=== PATIENT | female | born 1960 | race African-American/Black ===

== ENCOUNTER → 2017-02-22 | Outpatient (CLI) | payer MEDICARE, MEDICAID ==
[~2017-02-22] MED LIST: ASPI325T PO; CITA-51 PO; HYDR-2164 PO; LABE100T19 PO; MELO7.5T12 PO
--- NOTE | 2017-02-22 12:53 | DI ---
Indication: ITS.REASON: M25.551 RIGHT HIP PAIN PROCEDURE: HIP BILATERAL 2 VIEW: Encounter: Initial Comparison: None Findings: Left hip: No acute fracture or dislocation. Mild joint space narrowing. No significant osteophyte formation. Right hip: No acute fracture or dislocation. Mild joint space narrowing. No significant osteophytes seen. Degenerative change in the right SI joint. Impression: Left hip: Mild osteoarthritis. Right hip: Mild osteoarthritis. .
--- NOTE | 2017-02-22 12:53 | DI ---
Indication: ITS.REASON: M25.561 RIGHT KNEE PAIN PROCEDURE: KNEE RIGHT 3 VIEWS: Encounter: Initial Comparison: None Findings: There is no acute fracture, dislocation or malalignment identified. Mild lateral compartment joint space loss. No joint effusion. Impression: Mild lateral compartment degenerative change. .
--- NOTE | 2017-02-22 12:55 | DI ---
Indication: ITS.REASON: M54.5 LOW BACK PAIN PROCEDURE: LUMBAR SPINE COMP W/O BEND: Encounter: Initial Comparison: MRI lumbar spine dated November 13, 2012 Findings: Interval development of a mild superior endplate compression deformity of L3. This is of uncertain age. The remaining lumbar vertebral body heights are maintained. Mild disk space narrowing at L4-L5. Degenerative facet disease at L4-S1. The oblique views show no definite pars defects. Impression: Age-indeterminate superior endplate compression fracture of L3. .
== END ==
LOC: IMA 11:52
PROVIDERS: ATTEND Internal Medicine
DX: M48.56XA Collapsed vertebra, not elsewhere classified, lumbar region, initial encounter for fracture (principal); M16.0 Bilateral primary osteoarthritis of hip; M25.861 Other specified joint disorders, right knee; M47.817 Spondylosis without myelopathy or radiculopathy, lumbosacral region; M25.551 Pain in right hip; M25.561 Pain in right knee; M54.5 Low back pain

== ENCOUNTER → 2017-02-22 | Outpatient (CLI) | payer MEDICARE, MEDICAID ==
[2017-02-22 12:20] LABS: BASOPHILS % (AUTO) 0.2 % (0-2); EOSINOPHILS # (AUTO) 0.1 T/MM3 (0-0.5); EOSINOPHILS % (AUTO) 1.4 % (0-4); HCT - HEMATOCRIT 42.7 % (36-46); HGB - HEMOGLOBIN 14.5 GM/DL (12-16); IMMATURE GRANULOCYTE # (AUTO) 0.01 T/MM3 (0.00-0.03); IMMATURE GRANULOCYTE % (AUTO) 0.2 % (0.0-0.5); LYMPHOCYTES # (AUTO) 1.9 T/MM3 (1-4.8); LYMPHOCYTES % (AUTO) 29.1 % (23-45); MEAN CORPUSCULAR HGB 32.2 UUG (26-34); MEAN CORPUSCULAR VOLUME 94.7 UM3 (80-100); MEAN PLATELET VOLUME 10.8 UM3 (9.4-12.4); MONOCYTES # (AUTO) 0.6 T/MM3 (0-0.8); MONOCYTES % (AUTO) 8.6 % (0-9.0); NEUTROPHILS #(AUTO)-ABSOLUTE 3.9 T/MM3 (1.8-7.7); NEUTROPHILS % (AUTO) 60.5 % (33-66); RED BLOOD COUNT 4.51 M/MM3 (4.00-5.20); WBC - WHITE BLOOD COUNT 6.4 T/MM3 (4.5-11.0)
[2017-02-22 12:29] LABS: ALBUMIN 4.4 G/DL (3.5-5.0); ALBUMIN/GLOBULIN RATIO 1.4 RATIO (1.1-2.2); ALKALINE PHOSPHATASE 139 U/L (38-126); ALT (SGPT) 36 U/L (9-52); ANION GAP 12 MEQ/L (5-15); AST (SGOT) 25 U/L (14-36); BUN/CREATININE RATIO 19 RATIO (6-26); CALCIUM 9.3 MG/DL (8.4-10.2); CHLORIDE 106 MEQ/L (98-107); CO2 - CARBON DIOXIDE 27 MEQ/L (22-30); CREATININE 0.9 MG/DL (0.7-1.2); GLOMERULAR FILTRATION RATE 65; GLUCOSE 100 MG/DL (65-110); POTASSIUM 3.7 MEQ/L (3.6-5); SODIUM 145 MEQ/L (134-144); TOTAL PROTEIN 7.6 G/DL (6.3-8.2)
[2017-02-22 13:21] LABS: THYROID STIM HORMONE-TSH 1.14 MIU/L (0.47-4.68)
[2017-02-26 11:38] LABS: LDL CHOLESTEROL,CALCULATED 113.6 (66-159); VLDL CHOLESTEROL 15.4 MG/DL (0-28)
== END ==
LOC: LAB 11:47
PROVIDERS: ATTEND Nurse Practitioner Psychiatric/Mental Health
DX: Z79.899 Other long term (current) drug therapy (principal)
CPT/HCPCS: 36415; 80053; 80061; 84443; 85025